=== PATIENT | female | born 1975 | race Caucasian/White ===

== ENCOUNTER 2016-08-12 05:17 | Day surgery (SDC) | payer OTHER ==
[2016-08-12] MEDS ORDERED: PEPCID ONE (05:31)
[2016-08-12] MEDS ORDERED: KEFZOL 2 GM/D5W 50 ML ONE (05:31)
[2016-08-12] MEDS ORDERED: LR 1,000 ML ONE (05:31)
[2016-08-12] MEDS ORDERED: NEOSPORIN G.U. IRRIGANT ONE (06:42)
[2016-08-12] MEDS ORDERED: DIPRIVAN 1% ONE (07:37)
[2016-08-12] MEDS ORDERED: ZOFRAN ONE ×2 (07:47→08:12)
[2016-08-12] MEDS: DEMEROL ONE ×4 (08:04→08:19)
[2016-08-12] MEDS ORDERED: XYLOCAINE-MPF 2% ONE (08:12)
[2016-08-12] MEDS ORDERED: DECADRON ONE (08:13)
[2016-08-12] MEDS ORDERED: ULTRAM ONE (08:41)
--- NOTE | 2016-08-12 08:51 | OPERATIVE NOTE ---
PROCEDURE DATE: 08/12/2016 SURGEON: Dante Figueroa MD PREOPERATIVE DIAGNOSIS: Irritative voiding symptoms and pelvic pain. POSTOPERATIVE DIAGNOSIS: Irritative voiding symptoms and pelvic pain. PROCEDURES PERFORMED: Cystoscopic exam and bilateral retrograde ureteral pyelograms. ANESTHESIA: General via laryngeal mask. FINDINGS: Cystoscopic exam: Urethra-greater than 21 Thai, without stricture. Bladder-normal ureteral orifices bilaterally. No papillary lesions, diverticula, or trabeculations. Left retrograde ureteral pyelogram normal without filling defect. Right retrograde ureteral pyelogram normal without filling defect. exam-normal external female. Normal vaginal mucosa. No adnexal masses. Palpably normal bladder, cervix, and uterus. INDICATION FOR PROCEDURE: This 40-year-old female has a history of dysuria, pain after intercourse, and pelvic pains. DESCRIPTION OF PROCEDURE: After informed consent was obtained from the patient and her receiving IV antibiotics, she was taken the main OR, placed in the supine position. General anesthesia via laryngeal mask was achieved. She was then placed in a low lithotomy position and prepped and draped in the usual sterile fashion for cystoscopic exam. A 21-Thai cystoscope was passed through the patient's urethra and in the bladder with findings noted above. An 8-Thai cone- tipped catheter was passed through the cystoscope, engaged left ureteral orifice. Contrast was injected. Right side was accomplished similarly. Again, no filling defects were seen on either side. The bladder was completely inspected with findings as noted above. The bladder was drained. Cystoscope was removed. exam was performed. She tolerated the procedure well. ESTIMATED BLOOD LOSS: Zero. She was taken to recovery room in good condition.
[2016-08-12 09:07] VITALS: BP 110/71
--- NOTE | 2016-08-12 09:56 | Diag Imaging Result Document ---
PROCEDURE NAME: RETROGRADES 2 OR 3 FILMS - 08/12/2016 BILATERAL URETEROGRAM: COMPARISON: CT 01/23/2016. FINDINGS: The exam was performed by the patient's urologist. The ureters and renal collecting systems are normal bilaterally. Eight images were submitted. There are cholecystectomy clips and tubal ligation clips. IMPRESSION: Negative exam.
== END 2016-08-12 09:10 | disposition home or self-care (01) ==
LOC: PAT 05:17
PROVIDERS: ATTEND Urology
DX: R30.0 Dysuria (principal); R10.2 Pelvic and perineal pain; R31.29 Other microscopic hematuria
CPT/HCPCS: 74420; J0690; J1100; J2175; J2405; J7120; Q9966